=== PATIENT | female | born 1975 | race African-American/Black ===

== ENCOUNTER 2017-12-19 20:12 | Emergency (ER) | payer SELFPAY ==
[2017-12-19] MEDS ORDERED: Oxymetazoline HCl 0.05% ( 15 ML ) ONE (20:24)
== END 2017-12-19 20:32 | disposition home or self-care (01) ==
LOC: BURERS 20:12
DX: B34.9 Viral infection, unspecified (principal); F17.210 Nicotine dependence, cigarettes, uncomplicated
CPT/HCPCS: 99283

== ENCOUNTER → 2018-09-20 | Emergency (ER) | payer SELFPAY ==
--- NOTE | 2018-09-20 18:45 | RAD ---
LUMBAR SPINE THREE VIEWS: 09/20/18 No prior films were available for comparison. Disc space narrowing is present at L5-S1 that signifies a degenerated disc and is most likely chronic . There is also likely some arthritic changes in the facets at this level. The remainder of the spine shows normal disc space heights. No fracture or dislocation was seen. Very minor anterior osteophyte s are seen at some levels. The SI joints are symmetrical. The visible ribs appeared intact. The abdom inal gas pattern is normal. IMPRESSION: Evidence of degenerative disc disease and facet arthritis at L5-S1. If there are radicular symptoms, then an MRI could be useful to determine the possibility of any neural impingement. POS: HOME
== END ==
LOC: BURERS 17:18
DX: M54.5 Low back pain (principal); F17.210 Nicotine dependence, cigarettes, uncomplicated
CPT/HCPCS: 72100

== ENCOUNTER 2020-08-26 20:22 | Emergency (ER) | payer SELFPAY | END 2020-08-26 21:37 | disposition home or self-care (01) | LOC: BURERS 20:22 | DX: S92.412A Displaced fracture of proximal phalanx of left great toe, initial encounter for closed fracture (principal); F17.210 Nicotine dependence, cigarettes, uncomplicated; W20.8XXA Other cause of strike by thrown, projected or falling object, initial encounter ==

== ENCOUNTER 2021-10-25 23:49 | Emergency (ER) | payer OTHER, SELFPAY ==
[2021-10-26] MEDS ORDERED: Ibuprofen 800 MG TAB ONE (00:16)
[2021-10-26] MEDS ORDERED: traMADol HCl 50 MG TAB ONE (00:16)
[2021-10-26] MEDS ORDERED: Dexamethasone 4 MG TAB ONE (00:44)
== END 2021-10-26 00:45 | disposition home or self-care (01) ==
LOC: BURERS 23:49
DX: M23.92 Unspecified internal derangement of left knee (principal); F17.210 Nicotine dependence, cigarettes, uncomplicated
CPT/HCPCS: J8540

== ENCOUNTER 2022-07-04 13:16 | Emergency (ER) | payer OTHER ==
[2022-07-04] MEDS ORDERED: Dexamethasone 10 MG/ML VIAL ONE (13:34)
[2022-07-04] MEDS ORDERED: Ketorolac Tromethamine 60 MG/2 ML VIAL ONE (13:34)
== END 2022-07-04 13:42 | disposition home or self-care (01) ==
LOC: BURERS 13:16
DX: J06.9 Acute upper respiratory infection, unspecified (principal); F17.210 Nicotine dependence, cigarettes, uncomplicated
CPT/HCPCS: 96372; 99283; J1100; J1885

== ENCOUNTER 2023-10-24 17:40 | Emergency (ER) | payer OTHER ==
[2023-10-24] MEDS ORDERED: Sulfameth/Trimethoprim DS 800-160mg TAB ONE (18:23)
== END 2023-10-24 21:17 | disposition left against medical advice (07) ==
LOC: BURERS 17:40
DX: M27.2 Inflammatory conditions of jaws (principal); F17.210 Nicotine dependence, cigarettes, uncomplicated
CPT/HCPCS: 99282

== ENCOUNTER 2025-02-15 23:24 | Emergency (ER) | payer OTHER ==
[2025-02-15] MEDS ORDERED: Acetaminophen 500 MG TAB ONE (23:48)
[2025-02-16] MEDS ORDERED: cefTRIAXone (ROCEPHIN) 1 GM VIAL ONE (00:23)
[2025-02-16] MEDS ORDERED: Lidocaine 1% PF 5 ML VIAL ONE (00:23)
== END 2025-02-16 00:38 | disposition home or self-care (01) ==
LOC: BURERS 23:24
DX: S00.83XA Contusion of other part of head, initial encounter (principal); R03.0 Elevated blood-pressure reading, without diagnosis of hypertension; M48.8X9 Other specified spondylopathies, site unspecified; F17.210 Nicotine dependence, cigarettes, uncomplicated; W01.10XA Fall on same level from slipping, tripping and stumbling with subsequent striking against unspecified object, initial encounter
CPT/HCPCS: 70450; 70486; 72125; 96372; J0696; J1885